=== PATIENT | male | born 1935 | race Caucasian/White ===

== ENCOUNTER 2017-05-13 07:59 | Observation (INO) | payer MEDICARE ==
[2017-05-13] MEDS ORDERED: fentaNYL* 50 MCG/ML 2 ML VIAL (100 MCG VIAL) ONE (09:24)
[2017-05-13] MEDS ORDERED: Diazepam TAB(*) 5 MG ONE (09:24)
[2017-05-13] MEDS ORDERED: Heparin(*) 1000 UNIT/ML 10 ML VIAL CATH LAB IV ONE (09:25)
[2017-05-13] MEDS ORDERED: Lidocaine 1% INJ* 10 MG/ML 30 ML SDV ONE (09:25)
[2017-05-13] MEDS ORDERED: Iohexol 350 (CONTRAST) 200 ML MDV IV ONE ×2 (09:25→10:45)
[2017-05-13] MEDS ORDERED: Heparin 2 UNITS/ML IVPREMIX* 3,000 ML IV ONE (09:25)
[2017-05-13] MEDS ORDERED: nitroGLYCERIN DRIP* 25,000 MCG/250 ML BTL ONE (09:25)
[2017-05-13] MEDS ORDERED: Midazolam* 1 MG/ML 10 ML VIAL (10 MG) ONE (09:26)
[2017-05-13] MEDS ORDERED: VERAPAMIL 2.5 MG/ML 2 ML VIAL ** 5 mg/2 ml ONE (09:26)
[2017-05-13] MEDS ORDERED: Bivalirudin(*) 250 MG VIAL ONE (10:11)
[2017-05-13] MEDS ORDERED: Clopidogrel TAB* 75 MG ONE (10:26)
[2017-05-13] MEDS ORDERED: Nitroglycerin TAB 0.4 MG* 0.4 MG TAB SL PRN ×2 (11:28→11:37)
[2017-05-13] MEDS ORDERED: NS 0.9% 1000 ML* 1,000 ML IV SCH (11:30)
[2017-05-13] MEDS ORDERED: Acetaminophen TAB* 325 MG PO PRN (11:31)
[2017-05-13] MEDS ORDERED: Docusate CAP* 100 MG PO PRN (11:31)
[2017-05-13] MEDS ORDERED: Ondansetron INJ* 2 MG/ML VIAL IV PRN (11:31)
[2017-05-13] MEDS ORDERED: Atorvastatin* 40 MG TAB PO ONE (11:42)
[2017-05-13] MEDS: Cholestyramine Resin* 4 GM POWDER PO SCH (22:34)
[2017-05-14 07:47] LABS: EGFR Non-African American 106.7 (>60)
--- NOTE | 2017-05-14 08:09 | CATH ---
CC: Dr. Nir Arambula; Dr. Amrit Sanders * CARDIAC CATHETERIZATION AND INTERVENTIONAL REPORT: DATE OF PROCEDURE: 05/13/17 INDICATION FOR THE PROCEDURE: The patient with progressive exertion-related chest discomfort, class III, with an intermediate risk nuclear stress test with reversible ischemia to the anterior wall anteroseptal region, with prior history of coronary artery disease and stent placed in LAD. PROCEDURES: Coronary arteriography, left heart catheterization, left ventriculography, balloon angioplasty of the proximal LAD with a 2.5 x 12 mm long NC Emerge balloon followed by IVUS assessment of proximal LAD size and subsequent placement of a 2.75 x 16 mm long Synergy drug-eluting stent dilated to 2.75 to 2.8 mm. DESCRIPTION OF PROCEDURE: The patient was interviewed and examined in the holding area where the risks and benefits were explained. He understood them and wished to proceed. Laboratory results were reviewed as well and felt to be stable for cardiac catheterization. The right radial artery was assessed by ultrasound and found to be acceptable for an attemptable approach. The patient was brought into the cardiovascular laboratory where a formal time-out was performed. He was prepped and draped in sterile fashion. The right radial artery area was anesthetized with 1% lidocaine. Right radial artery was cannulated and a 6-Zimbabwean Glidesheath was placed. The radial artery cocktail including 3000 units of heparin, 3 mg of verapamil and 300 mcg of nitroglycerin was given intra-arterially. Coronary arteriography was performed utilizing a 5- Zimbabwean TIG4 curve catheter. Central aortic pressure was recorded using a 5- Zimbabwean PIG Performa radial catheter. The catheter was then passed across the aortic valve into the left ventricle where left ventricular pressure was recorded. Left ventriculography was performed utilizing a total of 24 cc of Omnipaque dye at a rate of 12 cc per second. The catheter was pulled back across the aortic valve to recheck gradient. Following this, decision was made to intervene into the proximal LAD. An ECT was checked and found to be subtherapeutic; and, as such, an Angiomax bolus was given and an Angiomax drip was started. The patient received an additional 75 units of Plavix orally (the patient has been on Plavix all along). He already took his baby aspirin (which he has been on chronically) this morning prior to the catheterization. Guiding views were obtained utilizing a 6-Zimbabwean VL 3.5 curve. Initial attempts were made to wire the LAD utilizing the [employer] Star guidewire. This was then exchanged for a BMW guidewire, which was placed into the diagonal branch as , due to marked tortuosity in the left anterior descending artery, it could not be delivered down the LAD. Balloon angioplasty was then performed utilizing a 2.5 x 12 mm long NC Emerge balloon. This was followed by IVUS assessment utilizing a 3-Zimbabwean OptiCross IVUS catheter by [employer]. Following this, a Synergy 2.5 x 16 mm long stent was delivered and postdilated by high pressure balloon inflation to 2.85 mm utilizing a 2.75 x 8 mm long NC Emerge balloon. The artery was then assessed in multiple views following this. At the end of the case, catheter was removed, the sheath was removed, and hemostasis was obtained with a Vasc Band. The total contrast used was 170 cc of Omnipaque dye. The radiation exposure included 22.5 minutes of fluoro time. The air kerma radiation was 1640 milligray. The DAP radiation was 8005 microgray per meter squared. RESULTS: HEMODYNAMIC DATA: Left heart catheterization - central aortic pressure recorded at 121/54 with a mean of 84. Left ventricular pressure recorded at 121 over left ventricular end diastolic pressure of 17. LEFT VENTRICULOGRAPHY: Performed in the ZIMMER projection revealed symmetrical contraction of left ventricle with normal left ventricular contractility, overall ejection fraction approximately 60% to 65%. CORONARY ARTERIOGRAPHY: A. Right coronary artery - a dominant vessel totally occluded proximally after a large acute marginal branch. There was bridging collateral seen faintly filling the mid portion as it turned onto the inferior surface. B. Left coronary artery: 1. Left main. There was tapering of the mid to distal left main with a narrowing of 25% by the distal-most portion of the left main. 2. Left anterior descending artery. The very high proximal area of the left anterior descending artery had a critical 90% blockage. Following this, the mid segment had a 60% to 65% blockage in a very small caliber area followed by another 65% to 70% diffusely diseased area in a small caliber vessel in the distal portion. The artery continued onto the inferior surface of the heart. The first diagonal branch had a long segment of 50% to 55% stenosis with a mid focal area of 65% to 70% in its worst area. This also was a very small caliber vessel. 3. Circumflex artery - a nondominant vessel supplying a thin first high obtuse marginal branch followed by a very thin second obtuse marginal branch. There was a bifurcating third obtuse marginal branch, moderate in size, which extended to the inferior apical region. There were mild luminal irregularities of 10% seen in the proximal portion of the circumflex artery. The mid portion of the third obtuse marginal branch had an area of 30% to 35% narrowing seen. Of note, there was collateral blood flow seen to the distal right coronary artery predominantly by the circumflex artery. There was faint filling of the PDA from the LAD. IVUS ASSESSMENT OF THE PROXIMAL LAD AREA: Following balloon angioplasty and trying to assess an area just distal to the diseased area for luminal size, average measurement came out to be approximately 2.75 to 3.00 mm diameter. INTERVENTION INTO PROXIMAL LAD BACK TO LEFT MAIN: Successful reduction of critical 90% blockage with balloon angioplasty and IVUS-guided stent placement with a 2.5 x 12 mm long Synergy drug-eluting stent dilated to 2.8 to 2.85 mm with high pressure balloon inflations as described above. OVERALL ASSESSMENT: Significant multivessel disease involving the LAD and right coronary artery as described above with chronic right total occlusion with brisk collaterals from the circumflex artery as well as some degree of antegrade flow down the right coronary artery to bridging collaterals. Intervention into the proximal LAD as this represented the new finding compared to film from 4 years ago when the patient had similar findings throughout most of his other arteries. At this point in time, it is paramount that risk factor management be aggressively approached. He has had multiple allergies to stents in the past, and I believe it is time for him to consider Repatha injection cholesterol therapy which Dr. Sanders has already started describing to the patient and awaiting the patient's approval to proceed with that. I emphasized that point to the patient as well, and he will be meeting with Dr. Sanders next week to get started on that. In the meantime, consideration for low -dose Livalo (which he has not tried) might be a reasonable compromise, and we will start him as an outpatient on 1 mg a day. [id number]/[facility] #: [id number] [facility]
[2017-05-14] MEDS ORDERED: Aspirin Low Dose CHEW TAB* 81 MG PO SCH (09:00)
[2017-05-14] MEDS ORDERED: Ascorbic Acid TAB* 500 MG PO SCH (09:00)
[2017-05-14] MEDS ORDERED: Metoprolol Succinate XL TAB* 25 MG PO SCH (09:00)
[2017-05-14] MEDS ORDERED: Hydrochlorothiazide TAB* 25 MG PO SCH (09:00)
[2017-05-14] MEDS ORDERED: Prenatal Vitamin TAB PO SCH (09:00)
[2017-05-14] MEDS ORDERED: Potassium Chlor TAB* 20 MEQ TAB.ER PO SCH (09:00)
[2017-05-14] MEDS ORDERED: Pitavastatin (NF) 1 MG TAB PO SCH (09:00)
[2017-05-14] MEDS ORDERED: Clopidogrel TAB* 75 MG PO SCH (09:00)
[2017-05-14] MEDS ORDERED: diPHENhydraMINE PO* 25 MG PO SCH (09:00)
[2017-05-14] MEDS ORDERED: Potassium Chloride LIQUID* 20 MEQ PACKET PO SCH (09:30)
[2017-05-14 10:28] VITALS: BP 142/68
[2017-05-14] MEDS: Cholestyramine Resin* 4 GM POWDER PO SCH (10:34)
--- NOTE | 2017-05-14 12:40 | DS ---
CC: Dr. Nir Arambula; Dr. Amrit Sanders DISCHARGE SUMMARY: DATE OF ADMISSION: 05/13/17 DATE OF DISCHARGE: 05/14/17 FINAL DIAGNOSES: 1. Progressive angina pectoris with intermediate risk nuclear stress test. 2. In-stent restenosis in the proximal LAD with repeat PCI. 3. Diffuse coronary artery disease. 4. Diet-controlled diabetes mellitus. 5. Essential hypertension. 6. Hyperlipidemia. DISCHARGE MEDICATIONS: 1. Ascorbic acid 500 mg. 2. Aspirin 81 mg a day. 3. Cholestyramine 4 mg twice a day. 4. Clopidogrel 75 mg a day. 5. Diphenhydramine 25 mg a day. 6. Hydrochlorothiazide 12.5 mg daily. 7. MultiVite one a day. 8. Nitroglycerin as needed. 9. Potassium 20 mEq daily. New Medication: Livalo 1 mg a day. HISTORY OF PRESENT ILLNESS: The patient is a pleasant 81-year-old gentleman of Dr. Amrit Sanders from [facility], who had progressive chest tightness sensation, doing exertional type activity, underwent an pharmacological nuclear stress test, which revealed intermediate risk with anterior and septal ischemia. Overall, EF noted to be 60%. Given these findings , recommendation for cardiac catheterization was made. He was brought to the cardiovascular laboratory on 05/13/17 with demonstration of progressive in-stent restenosis in the proximal LAD stent of 90%. He had diffuse disease elsewhere with [id number] grade stenosis in the mid LAD and in the first diagonal branch. The right coronary artery was noted to be chronically occluded and had brisk collaterals from the circumflex. He underwent successful balloon angioplasty and placement of a 2.5 x 16 mm stent that was dilated up to 2.8 to 2.85 mm with AUGUSTO III flow and no dissection seen in 10% residual stenosis. His EKG post procedure looked good as well. He will be kept an overnight and his renal function will be checked again tomorrow morning with his EKG as well. He will be seen by Dr. Ontiveros in the hospital and if he is stable, he will be discharged home. I will see him back in followup within less than 1 week's time, and he also has a followup appointment scheduled for Dr. Amrit Sanders. Most importantly toward his care will be aggressive risk factor management. In the past, he has had multiple allergies to STATIN THERAPY and clearly at this point, I would recommend subcutaneous cholesterol therapy. Dr. Sanders had already started talking to the patient about this and will pursue this further next week. In the meantime, the patient will go home on Livalo 1 mg a day in addition to his cholestyramine. [id number]/[facility] #: [id number] MTDD
== END 2017-05-14 11:10 | disposition home or self-care (01) ==
LOC: CHICATH 07:59 → ICU 11:28
PROVIDERS: ADMIT Internal Medicine Cardiovascular Disease; ATTEND Internal Medicine Cardiovascular Disease
DX: I20.0 Unstable angina (principal); T82.855A Stenosis of coronary artery stent, initial encounter; I25.10 Atherosclerotic heart disease of native coronary artery without angina pectoris; E11.9 Type 2 diabetes mellitus without complications; I10 Essential (primary) hypertension; E78.5 Hyperlipidemia, unspecified; Z79.82 Long term (current) use of aspirin; R07.9 Chest pain, unspecified
CPT/HCPCS: 36415; 76937; 80048; 80061; 87641; 93005; 93458; 96374; 99156; 99157; A9270-GY; C1725; C1769; C1876; C1887; C9600-LD; G0378; J0583; J1644; J2250; J3010

== ENCOUNTER 2019-04-01 19:09 | Emergency (ER) | payer MEDICARE ==
[2019-04-01 20:00] LABS: Hematocrit 42 % (42-52); Hemoglobin 14.5 g/dL (14.0-18.0); Mean Corpuscular HGB Conc 35 g/dL (31-36); Mean Corpuscular Hemoglobin 31 pg (27-31); Mean Corpuscular Volume 90 fL (80-94); Mean Platelet Volume 7.6 fL (7.4-10.4); Platelet Count 182 10^3/uL (150-450); Red Blood Count 4.66 10^6 /uL (4.18-5.48); Red Cell Distribution Width 13 % (10-15); White Blood Count 10.4 10^3/uL (3.5-10.8)
--- NOTE | 2019-04-01 20:02 | ED ---
Influenza-Like Illness - HPI Summary HPI Summary: 83 year old male presents with generalized illness for past couple weeks. He states that he had sinus congestion and cough for the past month. He states that two weeks ago his symptoms seemed to get better and then the returned. He developed a fever last night. He states that his was sick a week ago. Denies any chest pressure or shortness of breath. Cough is dry cough. No abdominal pain. No nausea vomiting. He admits to sinus congestion. Denies any headache. Denies any sore throat or postnasal drip. He states that he feels off and very weak. He denies any increase swelling in his legs. - History of Current Complaint Chief Complaint: EDUpperRespComplaint Time Seen by Provider: 04/01/19 19:29 - Allergy/Home Medications Allergies/Adverse Reactions: Allergies Allergy/AdvReac Type Severity Reaction Status Date / Time ramipril Allergy Unknown Unknown Verified 04/01/19 19:16 Reaction Details spironolactone Allergy Unknown Unknown Verified 04/01/19 19:16 Reaction Details valsartan Allergy Unknown Unknown Verified 04/01/19 19:16 Reaction Details shellfish derived Allergy Vomiting Verified 04/01/19 19:16 atorvastatin AdvReac Mild Muscle Ache Verified 04/01/19 19:16 ezetimibe AdvReac Mild Muscle Ache Verified 04/01/19 19:16 niacin AdvReac Mild Muscle Ache Verified 04/01/19 19:16 pravastatin AdvReac Mild Muscle Ache Verified 04/01/19 19:16 rosuvastatin AdvReac Unknown Muscle Ache Verified 04/01/19 19:16 red yeast rice AdvReac Muscle Ache Uncoded 04/01/19 19:16 PMH/Surg Hx/FS Hx/Imm Hx Endocrine/Hematology History: Denies: Hx Anemia, Hx Unexplained Bleeding Cardiovascular History: Reports: Hx Angina, Hx Coronary Artery Disease, Hx Hypercholesterolemia, Hx Hypertension, Hx Myocardial Infarction Denies: Hx Aneurysm, Hx Angioplasty, Hx Auto Implanted Cardiovert Defib, Hx Cardiac Arrest, Hx Cardiomegaly, Hx Congenital Heart Disease, Hx Congestive Heart Failure, Hx Deep Vein Thrombosis, Hx Embolism, Hx Hypotension, Hx Pacemaker/ICD, Hx Peripheral Vascular Disease, Hx Rheumatic Fever, Hx Syncope, Hx Valvular Heart Disease, Other Cardiovascular Problems/Disorders Respiratory History: Reports: Hx Asthma Denies: Hx Chronic Bronchitis, Hx Chronic Obstructive Pulmonary Disease (COPD ), Hx Cystic Fibrosis, Hx Lung Cancer, Hx Pleural Effusion, Hx Pneumonia, Hx Pulmonary Edema, Hx Pulmonary Embolism, Hx Seasonal Allergies, Hx Sleep Apnea, Other Respiratory Problems/Disorders History: Reports: Hx Benign Prostatic Hyperplasia - PSA checked periodically Denies: Hx Acute Renal Failure, Hx Chronic Renal Failure, Hx Dialysis, Hx Kidney Infection, Hx Kidney Stones, Other Problems/Disorders Musculoskeletal History: Reports: Hx Arthritis, Hx Back Problems - distan past spinal growth issues Denies: Hx Bursitis, Hx Congenital Bone Abnormalities, Hx Fibromyalgia, Hx Gout, Hx Orthopedic Injury, Hx Osteoporosis, Hx Scoliosis, Hx Tendonitis, Other Musculoskeletal History Sensory History: Reports: Hx Contacts or Glasses Denies: Hx Cataracts, Hx Eye Injury, Hx Eye Prosthesis, Hx Glaucoma, Hx Legally Blind, Hx Macular Degeneration, Hx Vision Problem, Hx Deafness, Hx Hearing Aid, Hx Hearing Problem, Other Sensory Impairments Opthamlomology History: Reports: Hx Contacts or Glasses Denies: Hx Cataracts, Hx Eye Injury, Hx Eye Prosthesis, Hx Glaucoma, Hx Legally Blind, Hx Macular Degeneration, Hx Vision Problem, Other Sensory Impairments - Cancer History Cancer Type, Location and Year: prostate CA - Surgical History Surgery Procedure, Year, and Place: angioplasty - Immunization History Date of Tetanus Vaccine: 2010 Date of Influenza Vaccine: Fall 2011 Infectious Disease History: No Infectious Disease History: Denies: Hx Tuberculosis, Traveled Outside the [place] in Last 30 Days - Family History Known Family History: Positive: Non-Contributory - Social History Alcohol Use: None Substance Use Type: Reports: None Smoking Status (MU): Never Smoked Tobacco Review of Systems Positive: Fever Positive: Nasal Discharge Negative: Chest Pain Positive: Cough. Negative: Shortness Of Breath Negative: Vomiting All Other Systems Reviewed And Are Negative: Yes Physical Exam Triage Information Reviewed: Yes Vital Signs On Initial Exam: Initial Vitals Temp Pulse Resp BP Pulse Ox 99.2 F 91 14 145/64 97 04/01/19 19:13 04/01/19 19:13 04/01/19 19:13 04/01/19 19:13 04/01/19 19:13 Vital Signs Reviewed: Yes Appearance: Positive: Well-Appearing Skin: Positive: Warm, Dry Head/Face: Positive: Normal Head/Face Inspection Eyes: Positive: Normal, EOMI, ZIA, Conjunctiva Clear ENT: Positive: Normal ENT inspection, Pharynx normal, Nasal congestion, TMs normal, Sinus tenderness Neck: Positive: Supple, Nontender, No Lymphadenopathy Respiratory/Lung Sounds: Positive: Clear to Auscultation, Breath Sounds Present Cardiovascular: Positive: Normal, RRR Abdomen Description: Positive: Nontender, Soft Bowel Sounds: Positive: Present Musculoskeletal: Positive: Normal Neurological: Positive: Normal Psychiatric: Positive: Normal Procedures - Sedation Patient Received Moderate/Deep Sedation with Procedure: No Diagnostics - Vital Signs Vital Signs Temp Pulse Resp BP Pulse Ox 04/01/19 19:13 99.2 F 91 14 145/64 97 - Laboratory Lab Results: Lab Results 04/01/19 Range/Units 19:49 WBC 10.4 (3.5-10.8) 10^3/uL RBC 4.66 (4.18-5.48) 10^6 /uL Hgb 14.5 (14.0-18.0) g/dL Hct 42 (42-52) % MCV 90 (80-94) fL MCH 31 (27-31) pg MCHC 35 (31-36) g/dL RDW 13 (10-15) % Plt Count 182 (150-450) 10^3/uL MPV 7.6 (7.4-10.4) fL Neut % (Auto) Pending Lymph % (Auto) Pending [place]imble % (Auto) Pending Eos % (Auto) Pending Baso % (Auto) Pending Absolute Neuts (auto) Pending Absolute Lymphs (auto) Pending Absolute Monos (auto) Pending Absolute Eos (auto) Pending Absolute Basos (auto) Pending Absolute Nucleated RBC Pending Nucleated RBC % Pending Result Diagrams: 04/01/19 19:49 04/01/19 19:49 Lab Statement: Any lab studies that have been ordered have been reviewed, and results considered in the medical decision making process. - Radiology chest Radiology Interpretation Completed By: ED Physician Summary of Radiographic Findings: no pneumonia - EKG No standard instances Cardiac Rate: NL EKG Rhythm: Sinus Rhythm EKG Comparison: No Significant Change Summary of EKG Findings: sinus rhythm, pacs, ST elevation anterior leads present on previous ekg Re-Evaluation - Re-Evaluation First Eval Re-Evaluation Time: 20:48 Comment: discussed results, lungs CTA Flu Symptom Course/Dx - Course Course Of Treatment: 83 year old male presents with generalized illness for past couple weeks. He states that he had sinus congestion and cough for the past month. He states that two weeks ago his symptoms seemed to get better and then the returned. He developed a fever last night. He states that his was sick a week ago. Denies any chest pressure or shortness of breath. Cough is dry cough. No abdominal pain. No nausea vomiting. He admits to sinus congestion. Denies any headache. Denies any sore throat or postnasal drip. On exam lungs clear auscultation. Abdomen soft nontender. sinus tenderness present. wbc normal. ekg sinus rhythm that is similiar to previous. crp elevated. troponin .01. bnp 112. influenza neg. chest xray shows no pneumonia. has had worsening sinus congestion and new fever will treat as sinus infection with augmentin. told follow up with primary. patient understand and agrees with plan. - Diagnoses Differential Diagnosis/HQI/PQRI: Positive: Influenza, Pneumonia, Upper Respiratory Infection Provider Diagnoses: Sinusitis, Weakness, Upper respiratory infection Discharge ED - Sign-Out/Discharge Documenting (check all that apply): Patient Departure - Discharge Plan Condition: Good Disposition: HOME Prescriptions: Amoxicillin/Clavulanate TAB* [Augmentin TAB 875*] 875 mg PO BID #13 tab Fluticasone NASAL SPRAY 50MCG* [Flonase NASAL SPRAY 50MCG*] 1 spray BOTH NARES DAILY #1 btl Patient Education Materials: Sinusitis (ED) Referrals: Josias Cisneros MD [Primary Care Provider] - Additional Instructions: Take antibiotic twice a day for 7 days Use saline spray in nose as much as needed Use flonase one spray each nostril daily take tyenlol every 6 hours as needed for pain Follow up with primary within 5 days Return to ED with any new or worsening symptoms - Billing Disposition and Condition Condition: GOOD Disposition: Home
[2019-04-01 20:17] LABS: Albumin/Globulin Ratio 1.6 (1-3); BUN/Creatinine Ratio 18.5 (8-20); C Reactive Protein 56.83 mg/L (<8.01); EGFR African American 110.4 (>60); EGFR Non-African American 91.2 (>60); Globulin 2.5 g/dL (2-4); Potassium 3.8 mmol/L (3.5-5.0); Total Bilirubin 0.4 mg/dL (0.2-1.0); Total Protein 6.5 g/dL (6.4-8.9)
[2019-04-01 20:19] LABS: Troponin I 0.01 ng/mL (<0.03)
[2019-04-01 20:32] LABS: ABS Lymphocytes 0.8 10^3/ul (1.0-4.8); ABS Monocytes 1.6 10^3/ul (0-0.8); Eosinophil % 0.3 %; Lymphocyte % 7.3 %
[2019-04-01 20:33] LABS: Influenza A Molecular NEGATIVE (Negative); Influenza B Molecular NEGATIVE (Negative)
[2019-04-01] MEDS ORDERED: Amoxicillin/Clavulanate TAB* 875 MG PO ONE (20:45)
[2019-04-01 20:46] VITALS: BP 115/57
== END 2019-04-01 21:09 | disposition home or self-care (01) ==
LOC: ED 19:09
DX: J32.9 Chronic sinusitis, unspecified (principal); J06.9 Acute upper respiratory infection, unspecified; R53.1 Weakness; I25.10 Atherosclerotic heart disease of native coronary artery without angina pectoris; E78.00 Pure hypercholesterolemia, unspecified; I10 Essential (primary) hypertension; I25.2 Old myocardial infarction; J45.909 Unspecified asthma, uncomplicated; Z85.46 Personal history of malignant neoplasm of prostate; Z88.8 Allergy status to other drugs, medicaments and biological substances
CPT/HCPCS: 36415; 71046; 80053; 83605; 83880; 84484; 85025; 86140; 87040; 93005; 99283; A9270-GY

== ENCOUNTER 2019-09-26 18:34 | Observation (INO) ==
[2019-09-26] MEDS ORDERED: NS 0.9% 1000 ml BAG 2,000 ML IV ONE (19:02)
[2019-09-26 19:28] LABS: ABS Lymphocytes 0.7 10^3/ul (1.0-4.8); ABS Monocytes 0.7 10^3/ul (0-0.8); Eosinophil % 0.1 %; Hematocrit 43 % (42-52); Hemoglobin 14.8 g/dL (14.0-18.0); Lymphocyte % 12.2 %; Mean Corpuscular HGB Conc 35 g/dL (31-36); Mean Corpuscular Hemoglobin 30 pg (27-31); Mean Corpuscular Volume 88 fL (80-94); Mean Platelet Volume 8.3 fL (7.4-10.4); Platelet Count 139 10^3/uL (150-450); Red Blood Count 4.85 10^6 /uL (4.18-5.48); Red Cell Distribution Width 13 % (10-15); White Blood Count 6.1 10^3/uL (3.5-10.8)
[2019-09-26 19:42] LABS: Urine Appearance Clear; Urine Bilirubin Negative (Negative); Urine Blood 2+ (Negative); Urine Color Yellow; Urine Glucose Negative (Negative); Urine Ketones Negative (Negative); Urine Nitrite Negative (Negative); Urine Protein Negative (Negative); Urine Specific Gravity 1.019 (1.010-1.030); Urine Urobilinogen Negative (Negative)
[2019-09-26 19:43] LABS: Activated Partial Thrombo Time 26.1 seconds (26.0-38.0); INR 1.11 (0.82-1.09)
[2019-09-26 19:45] LABS: Albumin/Globulin Ratio 1.3 (1-3); Calcium 9.1 mg/dL (8.6-10.3); Potassium 3.8 mmol/L (3.5-5.0); Total Bilirubin 0.5 mg/dL (0.2-1.0)
[2019-09-26 19:45] LABS: Urine Bacteria Absent (Absent); Urine Red Blood Cell 3+(>10/hpf) (Absent); Urine White Blood Cell Trace(0-5/hpf) (Absent)
[2019-09-26 19:46] LABS: Troponin I 0.01 ng/mL (<0.03)
[2019-09-26 20:24] LABS: BUN/Creatinine Ratio 18.4 (8-20); EGFR African American 118.5 (>60)
[2019-09-26] MEDS ORDERED: cefTRIAXone 1 gm/50 mL NS BAG 1 GM/50 ML BAG IV ONE (21:37)
[2019-09-26] MEDS ORDERED: diPHENhydraMINE 25 mg TAB PO PRN (22:27)
[2019-09-26] MEDS ORDERED: Albuterol HFA INHALER 8 gm MDI INH PRN (23:57)
[2019-09-27 06:52] LABS: ABS Lymphocytes 0.6 10^3/ul (1.0-4.8); ABS Monocytes 0.9 10^3/ul (0-0.8); Eosinophil % 0.1 %; Hematocrit 41 % (42-52); Hemoglobin 14.2 g/dL (14.0-18.0); Lymphocyte % 6.5 %; Mean Corpuscular HGB Conc 35 g/dL (31-36); Mean Corpuscular Hemoglobin 31 pg (27-31); Mean Corpuscular Volume 89 fL (80-94); Nucleated Red Blood Cells % 0.1; Platelet Count 117 10^3/uL (150-450); Red Cell Distribution Width 13 % (10-15); White Blood Count 8.6 10^3/uL (3.5-10.8)
[2019-09-27 06:56] LABS: Calcium 8.5 mg/dL (8.6-10.3); Potassium 3.6 mmol/L (3.5-5.0)
[2019-09-27 07:01] LABS: BUN/Creatinine Ratio 14.3 (8-20); EGFR African American 147.2 (>60); EGFR Non-African American 121.6 (>60)
[2019-09-27] MEDS ORDERED: Vitamin THERAPEUTIC TAB PO SCH (09:00)
[2019-09-27] MEDS ORDERED: Potassium Chlor 20 meq TAB.ER PO SCH (09:00)
[2019-09-27 12:32] VITALS: BP 109/47
[2019-09-27] MEDS ORDERED: cefTRIAXone 1 gm/50 mL NS BAG 1 GM/50 ML BAG IVPB SCH (20:00)
[2019-09-27] MEDS ORDERED: Enoxaparin 40 MG/0.4 ML SYR(*) SUBCUT SCH (21:00)
== END 2019-09-27 15:15 | disposition home or self-care (01) ==
LOC: MED 18:34 → ED 18:34 → MED 09-27 01:00
PROVIDERS: ADMIT Hospitalist; ATTEND Internal Medicine